=== PATIENT | female | born 1930 | race Caucasian/White ===

== ENCOUNTER → 2016-06-20 | Outpatient (REF) | payer MEDICARE, MEDICAID, OTHER ==
[~2016-06-20] MED LIST: ACET650S3 PR; AMPI25CA PO; ARIC10TA PO; ASPI81CH PO; CELE20TA PO; DULC10SU2 PR; ENEMENE6 PR; GLUC1INJ2 SQ; GLUC4CHW PO; HALD5INJ2 IM; INSUDET SC; INSUH10VL SC; LISI25TA PO; METF500T PO; MILKSUS PO; MIRA3350 PO; MOM30SS PO; MULTLIQ PO; NAME10TA PO; SENN8.6T7 PO; SERO1TAB3 PO; SYST1SOL OD; TRIC145T PO; TYLE325T5 PO; VITA200038 PO; VITA250L PO; XARE15TA PO; XARE20TA PO; [UNRECOGNIZED DRUG - CODE] PO; proventil neb INH
[2016-06-20 08:09] LABS: ANION GAP 8 MEQ/L (8-16); BLOOD UREA NITROGEN 11 MG/DL (7-18); CALCIUM LEVEL 9.2 MG/DL (8.8-10.2); CARBON DIOXIDE LEVEL 31 MEQ/L (21-32); CHLORIDE LEVEL 106 MEQ/L (98-107); CREATININE FOR GFR 0.85 MG/DL (0.55-1.02); GLOMERULAR FILTRATION RATE > 60.0 (>32); GLUCOSE, FASTING 129 MG/DL (83-110); SODIUM LEVEL 145 MEQ/L (136-145)
== END ==
LOC: SKLAB5 08:35
PROVIDERS: ATTEND Family Medicine
DX: F03.90 Unspecified dementia, unspecified severity, without behavioral disturbance, psychotic disturbance, mood disturbance, and anxiety (principal); I10 Essential (primary) hypertension; E55.9 Vitamin D deficiency, unspecified; E11.9 Type 2 diabetes mellitus without complications

== ENCOUNTER → 2016-09-19 | Outpatient (REF) | payer MEDICARE, MEDICAID, OTHER ==
[~2016-09-19] MED LIST changes: +AMPI250C59 PO; -AMPI25CA PO
[2016-09-19 10:38] LABS: ANION GAP 12 MEQ/L (8-16); BLOOD UREA NITROGEN 12 MG/DL (7-18); CALCIUM LEVEL 9.4 MG/DL (8.8-10.2); CARBON DIOXIDE LEVEL 28 MEQ/L (21-32); CHLORIDE LEVEL 102 MEQ/L (98-107); CHOLESTEROL LEVEL 205 MG/DL (<200); CREATININE FOR GFR 0.84 MG/DL (0.55-1.02); GLOMERULAR FILTRATION RATE > 60.0 (>32); GLUCOSE, FASTING 230 MG/DL (83-110); POTASSIUM SERUM 4.3 MEQ/L (3.5-5.1); SODIUM LEVEL 142 MEQ/L (136-145); TRIGLYCERIDES LEVEL 317 MG/DL (<150)
== END ==
LOC: SKLAB5 07:19
PROVIDERS: ATTEND Family Medicine
DX: E11.9 Type 2 diabetes mellitus without complications (principal); E78.5 Hyperlipidemia, unspecified; F03.90 Unspecified dementia, unspecified severity, without behavioral disturbance, psychotic disturbance, mood disturbance, and anxiety; I10 Essential (primary) hypertension; E55.9 Vitamin D deficiency, unspecified

== ENCOUNTER → 2016-12-01 | Outpatient (REF) | payer MEDICARE, MEDICAID ==
[~2016-12-01] MED LIST changes: -ARIC10TA PO; +ARIC1TAB2 PO; -METF500T PO; +METF500T13 PO; -TRIC145T PO; +TRIC145T22 PO
--- NOTE | 2016-12-01 18:20 | REPUSA ---
CLINICAL HISTORY: -INCREASED CONGESTION. TECHNIQUE: Frontal chest x-ray. FINDINGS: Heart is not enlarged and there is no evidence of failure. No mediastinal mass lesion is se en. Lung sanford are clear of acute alveolar infiltrates. No pulmonary mass lesions are seen. No destr uctive bony lesion or fracture is seen. IMPRESSION: No evidence of acute disease in the chest .
== END ==
LOC: SKLAB5 17:05
PROVIDERS: ATTEND Family Medicine
DX: R09.89 Other specified symptoms and signs involving the circulatory and respiratory systems (principal)

== ENCOUNTER → 2016-12-19 | Outpatient (REF) | payer MEDICARE, MEDICAID ==
[2016-12-19 08:59] LABS: ANION GAP 9 MEQ/L (8-16); BLOOD UREA NITROGEN 10 MG/DL (7-18); CALCIUM LEVEL 9.9 MG/DL (8.8-10.2); CARBON DIOXIDE LEVEL 30 MEQ/L (21-32); CHLORIDE LEVEL 104 MEQ/L (98-107); CREATININE FOR GFR 0.67 MG/DL (0.55-1.02); GLOMERULAR FILTRATION RATE > 60.0 (>32); GLUCOSE, FASTING 160 MG/DL (83-110); POTASSIUM SERUM 3.8 MEQ/L (3.5-5.1); SODIUM LEVEL 143 MEQ/L (136-145)
== END ==
LOC: SKLAB5 08:53
PROVIDERS: ATTEND Family Medicine
DX: E11.9 Type 2 diabetes mellitus without complications (principal); E55.9 Vitamin D deficiency, unspecified

== ENCOUNTER → 2017-01-23 | Outpatient (REF) | payer MEDICARE, MEDICAID, OTHER | LOC: SKLAB5 07:35 | PROVIDERS: ATTEND Family Medicine | DX: E53.8 Deficiency of other specified B group vitamins (principal) ==